=== PATIENT | male | born 1990 | race Caucasian/White ===

== ENCOUNTER 2018-10-19 09:46 | Emergency (ER) | payer OTHER ==
[~2018-10-19] VITALS: Ht 175.3 cm; Wt 95.4 kg
[2018-10-19 10:06] VITALS: BP 124/79
[2018-10-19] MEDS ORDERED: HYDROcodone-ACET 7.5/325MG TAB PO ONE (10:45)
== END 2018-10-19 12:16 | disposition home or self-care (01) ==
LOC: ER 09:46
DX: S82.62XA Displaced fracture of lateral malleolus of left fibula, initial encounter for closed fracture (principal); W20.8XXA Other cause of strike by thrown, projected or falling object, initial encounter; Y93.89 Activity, other specified; Y92.89 Other specified places as the place of occurrence of the external cause; Y99.8 Other external cause status
CPT/HCPCS: 29515; 73590; 73610